=== PATIENT | female | born 1985 | race Caucasian/White ===

== ENCOUNTER 2020-02-26 21:20 | Emergency (ER) | payer SELFPAY ==
[2020-02-26] MEDS ORDERED: METHOCARBAMOL 750 MG TABLET PO ONE (22:48)
--- NOTE | 2020-02-26 23:32 | RADIOLOGY REPORT (SQ) ---
CLINICAL INDICATION: pain/swelling. . TECHNIQUE: 2 view(s) were obtained of the right forearm. COMPARISON: None. FINDINGS: No acute displaced fracture is identified of the forearm. Alignment appears anatomic. Joint spaces are within normal limits for age. Soft tissue swelling. If wrist or elbow are clinically in suspicion, then dedicated radiography is advised. IMPRESSION: No evidence of acute displaced fracture of the forearm.
--- NOTE | 2020-02-26 23:46 | ER Document Report ---
HPI - HPI Time Seen by Provider: 02/26/20 22:42 Pain Level: 2 Notes: Otherwise healthy 34-year-old female presents the emergency department chief complaint of right forearm pain. Patient denies any direct trauma to the area but states she has been moving around heavy boxes all day. She thinks she may have strained something. - CONSTITUTIONAL Constitutional: DENIES: Fever, Chills - EENT EENT: DENIES: Sore Throat, Ear Pain, Eye problems - NEURO Neurology: DENIES: Headache, Weakness, Vision blurred, Dizzinesss / Vertigo - CARDIOVASCULAR Cardiovascular: DENIES: Chest pain - RESPIRATORY Respiratory: DENIES: Trouble Breathing, Coughing - GASTROINTESTINAL Gastrointestinal: DENIES: Abdominal Pain, Black / Bloody Stools - URINARY Urinary: DENIES: Dysuria, Urgency, Frequency - REPRODUCTIVE LMP: 3 weeks ago Reproductive: DENIES: : - MUSCULOSKELETAL Musculoskeletal: REPORTS: Extremity pain - right arm Past Medical History - General Information source: Patient - Social History Smoking Status: Never Smoker Chew tobacco use (# tins/day): No Frequency of alcohol use: None Drug Abuse: None Family History: Reviewed & Not Pertinent Patient has homicidal ideation: No - Medical History Medical History: Negative Surgical Hx: Negative - Immunizations Hx Diphtheria, Pertussis, Tetanus Vaccination: Yes Vertical Provider Document - CONSTITUTIONAL Notes: PHYSICAL EXAMINATION: GENERAL: Well-appearing, well-nourished and in no acute distress. HEAD: Atraumatic, normocephalic. EYES: Pupils equal round extraocular movements intact, conjunctiva are normal. ENT: Nares patent NECK: Normal range of motion LUNGS: No respiratory distress Musculoskeletal: Normal range of motion, mild swelling noted to right forearm. Strong radial pulse, cap refill less than 3 seconds, normal motor and sensation distally. You have been seen today in the Emergency Department for your concerns. At this time there is no obvious cause for your concerns. You may have received labs or imaging which you can receive copies of from medical records. If your symptoms do worsen or new symptoms occur you must return immediately for further care. Either way you must follow up with the primary care physician for further evaluation range of motion at elbow and wrist. NEUROLOGICAL: Normal speech, normal gait. PSYCH: Normal mood, normal affect. SKIN: Warm, Dry, normal turgor, no rashes or lesions noted. - INFECTION CONTROL TRAVEL OUTSIDE OF THE [place] IN LAST 30 DAYS: No Course - Re-evaluation Re-evalutation: Forearm X-Ray 02/26/20 22:48 IMPRESSION: No evidence of acute displaced fracture of the forearm. - Vital Signs Vital signs: Temp Pulse Resp BP Pulse Ox 99.5 F 70 16 151/94 H 98 02/26/20 21:51 02/26/20 21:31 02/26/20 21:31 02/26/20 21:31 02/26/20 21:31 Discharge - Discharge Clinical Impression: Right arm pain, Muscle strain Condition: Stable Disposition: HOME, SELF-CARE Additional Instructions: The x-ray of your arm was unremarkable. Please take ibuprofen and also take the muscle relaxer as this should help with the pain. If this does not improve over the next 5 to 7 days please follow-up with orthopedics. Their phone number is below. Prescriptions: Methocarbamol [Robaxin 750 mg Tablet] 750 mg PO Q4 #20 tablet Forms: Return to Work
[2020-02-27 00:08] VITALS: BP 160/99
== END 2020-02-27 00:07 | disposition home or self-care (01) ==
LOC: ER 21:20
DX: S56.911A Strain of unspecified muscles, fascia and tendons at forearm level, right arm, initial encounter (principal); M79.631 Pain in right forearm; X50.0XXA Overexertion from strenuous movement or load, initial encounter
CPT/HCPCS: 99283; 73090; J3490